=== PATIENT | female | born 2000 | race Caucasian/White ===

== ENCOUNTER 2023-10-14 09:56 | Emergency (ER) | payer OTHER, SELFPAY ==
[2023-10-14 10:12] VITALS: BP 128/83; PULSE 84; RESP 18; TEMP 36.8; O2SAT 97; BMI 43.4
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
--- NOTE | 2023-10-14 13:10 | CT_ITS ---
Final Report Patient: CLEO ESPINOZA Facility:?[facility] Patient ID:?[id number] Site Patient ID:?[id number]. Site :?[id number] Study:?CT Head WO-10/14/2023 1:51:40 PM Ordering Physician:OVI Final Report: INDICATION: Headache and confusion TECHNIQUE: CT head without contrast. COMPARISON: None. FINDINGS: CSF spaces: Within normal limits for age. Brain parenchyma: The gama-white differentiation is normal. No sign of mass, hemorrhage, or midline shift. Skull base and calvarium: The visualized paranasal sinuses and mastoid air cells demonstrate no acute or significant findings. The visualized orbits are grossly unremarkable. No skull fractures. IMPRESSION: Unremarkable noncontrast head CT. Please note that all CT scans at this facility use dose modulation, iterative reconstruction, and/or weight-based dosing when appropriate to reduce radiation dose to as low as reasonably achievable. Dictated by Shade Smith MD @ 10/14/2023 2:07:09 PM (Electronic Signature)
[2023-10-14 13:37] LABS: Hemoglobin* 13.4 gm/dL (12.0-16.0); Lymphocytes Percent Auto 21.2 % (20-44); Mean Corpuscular HGB Conc 33 gm/dL (32-36); Mean Corpuscular Hemoglobin 29 pg (26-34); Mean Corpuscular Volume 88 fL (80-100); Monocytes Percent Auto 4.7 % (0.0-11.0); Neutrophils Percent Auto 72.4 % (42.0-72.0); Platelet Count* 406 K/uL (140-440); RDW Coefficient of Variation % 12.7 % (11.5-15.5); Red Blood Count 4.67 m/uL (4.00-5.20); White Blood Count* 14.17 K/uL (4.50-11.00)
[2023-10-14 13:38] LABS: Basophils Percent Auto 0.2 % (0.0-3.0); Eosinophils Percent Auto 1.4 % (0.0-7.0); Immature Granulocytes Pct Auto 0.1 %
[2023-10-14 13:46] LABS: Slide Review Reflex No
[2023-10-14 14:01] LABS: HCG Qualitative Serum* Negative (Negative)
[2023-10-14 14:02] LABS: Chloride* 109 mmol/L (96-114); Potassium* 4.1 mmol/L (3.6-5.1); Sodium* 141 mmol/L (135-149)
[2023-10-14 14:04] LABS: Creatinine* 0.6 mg/dL (0.5-1.5); Estimated Glomerular Filt Rate 128 ml/min
[2023-10-14 14:05] LABS: Anion Gap 10 mEq/L (7-15); Blood Urea Nitrogen* 12 mg/dL (5-24); Calcium* 9.6 mg/dL (8.4-10.6); Carbon Dioxide* 22 mmol/L (20-32); Glucose* 103 mg/dL (60-115)
[2023-10-14 14:16] LABS: Troponin I* < 0.01 ng/mL (0.01-0.04)
== END 2023-10-14 15:20 | disposition home or self-care (01) ==
PROVIDERS: Emergency Provider Emergency Medicine
DX: G47.00 Insomnia, unspecified (principal); D72.829 Elevated white blood cell count, unspecified; R41.82 Altered mental status, unspecified
CPT/HCPCS: 36415; 70450; 80048; 84443; 84484; 84703; 85025; 99284

== ENCOUNTER 2023-10-18 10:14 | Emergency (ER) | payer OTHER, SELFPAY ==
[2023-10-18 10:27] VITALS: BP 133/82; PULSE 80; RESP 20; TEMP 36.9; O2SAT 100; BMI 48.8
--- NOTE | 2023-10-18 11:17 | ED_ITS ---
HPI - General Adult General Chief complaint: Chest Pain Stated complaint: unable to sleep, chest pain Time Seen by Provider: 10/18/23 11:15 History of Present Illness HPI narrative: Seen in Er on Saturday with multiple symptoms. Symptoms have not gotten better. Has sleeped for about 8 hours this week. Chest pain is worse, more SOB , discomfort while walking. Has a head cold . Coughing from postnasal drip. Wonders if she has the flu. Waves of nausea. Vomited x1 this week. 23-year-old woman presenting to the emergency depart with concern of midsternal chest pain that seems to be little worse with ambulation or lying down. She is not frankly short of breath. Has been coughing having developed a head cold since last ER visit here 4 days ago. Did have lab workup at that time which showed leukocytosis which she said is relatively chronic. She does have a history of pilonidal cysts and says that that or ingrown toenails are often the cause of though neither seem to be flaring at this time. Does have some healing pits in her armpits. Not inflamed. Not complaining of pain. She has only managed about 8 hours of sleep this week. Discussion had been to have an EKG at last visit and she has gotten to think about that maybe she should have this done. She does not though thinking rationally, that she has been having heart attack. Does think that there had been some mild flare of bipolar 2 disorder with some go go go recently. She has been having trouble with sleep as noted and thinks that this may be contributing to her pains. Does not have follow-up psychiatric visit yet but anticipates having this when healthcare kicks in and about a month. Is not noting confusion here today. Related Data Home Medications Medication Instructions Recorded Confirmed Magnessium 10/14/23 melatonin 5 mg capsule 5 mg PO HS PRN 10/14/23 10/14/23 Previous Rx's Medication Instructions Recorded olanzapine 5 mg tablet 5 - 10 mg (1 - 2 x 5 mg) PO QHS 10/18/23 PRN #5 tabs Allergies Allergy/AdvReac Type Severity Reaction Status Date / Time No Known Drug Allergies Allergy Verified 10/14/23 10:29 Review of Systems Status of ROS: Reports: 6 or more systems reviewed and unremarkable except as noted in History and below [facility] Medical History PCOS (polycystic ovarian syndrome) ?E28.2 - Polycystic ovarian syndrome (ICD-10) Spina bifida ?Q05.9 - Spina bifida, unspecified (ICD-10) Anxiety ?F41.9 - Anxiety disorder, unspecified (ICD-10) Depression ?F32.A - Depression, unspecified (ICD-10) Social History Smoking Status: Never smoker Do you use any of these nicotine containing products: None Second hand tobacco smoke exposure: No How often do you have a drink containing alcohol: 2-3 times a week How often do you have six or more drinks on one occasion: Weekly AUDIT-C Alcohol total score: 6 Non-prescribed substance use: marijuana (any form) Exam Narrative: Exam Narrative: Pleasant. NAD. Calm and careful in her conversation. Has magenta dyed hair like her partner who is supportive accompanies her here today. Lungs are clear. Heart in regular rate and rhythm without murmur rub or gallop. She does have pain to palpation about the rhomboid musculature/medial periscapular borders bilaterally. Well-perfused. Moving all extremities without difficulty. She does have numerous line tattoos over her forearms. No indication self-harm behavior. Is congested in the nasopharynx frequently sniffing. There has been some question of sleep apnea but partner does not describe major episodes of apnea. She does snore heavily. Sometimes briefly stops breathing. Does take melatonin 5 mg and he other day tried 10 mg. Is wanting to try [id number] sleep meds if that is what it comes down to but would like to have a backup. She does offer that the constellation of symptoms that she has been having is probably psychosomatic. Const: Vital Signs, click to edit/add: Vital Signs - 24 hr 10/18/23 10:27 Temperature 98.5 F Pulse Rate [Pulse Oximeter] 80 Respiratory Rate 20 Blood Pressure [Ri ght Upper Arm] 133/82 Pulse Oximetry 100 Documenting provider has reviewed patient's vital signs: yes Course Vital Signs Vital signs: Initial Vital Signs Temperature 98.5 F 10/18/23 10:27 Temperature Source Temporal Artery Scan 10/18/23 10:27 Pulse Rate 80 10/18/23 10:27 Pulse Rhythm Regular 10/18/23 10:27 Respiratory Rate 20 10/18/23 10:27 Blood Pressure 133/82 10/18/23 10:27 Blood Pressure Mean 99 10/18/23 10:27 Blood Pressure Position Sitting 10/18/23 10:27 Pulse Oximetry 100 10/18/23 10:27 Vital Signs Temperature 98.5 F 10/18/23 10:27 Pulse Rate 80 10/18/23 10:27 Respiratory Rate 20 10/18/23 10:27 Blood Pressure 133/82 10/18/23 10:27 Pulse Oximetry 100 10/18/23 10:27 Temperature 98.5 F 10/18/23 10:27 Pulse Rate 80 10/18/23 10:27 Respiratory Rate 20 10/18/23 10:27 Blood Pressure 133/82 10/18/23 10:27 Pulse Oximetry 100 10/18/23 10:27 Medical Decision Making MDM Narrative Medical decision making narrative: In spite of low pretest probability offered chest x-ray and screening for pulmonary embolus; both of which I think were reasonably declined by [facility]. Spent some time in conversation reviewing all concerns. Decided to test for COVID influenza Some of this chest discomfort could be anxiety or also related to the discomfort/tension in the upper back I think with some good sleep might be even further improved. Considering mental health concerns combined with sleep concerns Zyprexa might be a good, albeit temporary option here. See patient discharge plan for further discussion Medical Records Medical records reviewed: Yes I reviewed the patient's medical records Lab Data Lab results reviewed: Yes I reviewed the patient's lab results Labs: Lab Results 10/18/23 Range/Units 10:45 SARS-CoV-2 (PCR) Negative SARS-CoV-2 (Negative) Influenza Type A (PCR) Negative PCR FLU A (Negative) Influenza Type B (PCR) Negative PCR FLU B (Negative) Discharge Plan Discharge Clinical Impression: Insomnia, Atypical chest pain, Upper back pain, Head cold Patient Disposition: Home, Self-Care Condition: Stable Additional Instructions: Do consider that handout on upper back pain. Consider doing those stretches a couple of times daily going forward. For sleep: Can take up to 50 mg of diphenhydramine or doxylamine per dose. These can also be combined with your melatonin. To practice good sleep hygiene; preparing for bed possibly with a shower and not looking at screens for at least an hour before. If other medication isn't working or your efforts at achieving sleep are not being successful, there is a prescription of Zyprexa available for you at the pharmacy. This isn't a medication that one would take long-term in this case but I would expect it to help you get a couple of nights of sleep if necessary. I would take 1 tablet and if not asleep in an hour take another tablet. Activity Level: No Restrictions Discharge Diet: Regular Prescriptions: New olanzapine 5 mg tablet 5 - 10 mg PO QHS PRNQty: 5 0RF No Action melatonin 5 mg capsule 5 mg PO HS PRN Patient Comments: if not smoking Magnessium Follow Up/Referrals: Provider,Not a Local [Primary Care Provider] - Stand Alone Forms: [employer] Info Instructions
[2023-10-18 11:44] LABS: PCR FLU A Negative PCR FLU A (Negative); PCR FLU B Negative PCR FLU B (Negative); SARS PCR* Negative SARS-CoV-2 (Negative)
== END 2023-10-18 13:13 | disposition home or self-care (01) ==
PROVIDERS: Emergency Provider Family Medicine
DX: R07.9 Chest pain, unspecified (principal); M54.9 Dorsalgia, unspecified; G47.00 Insomnia, unspecified
CPT/HCPCS: 87631; 93005; 99284

== ENCOUNTER 2025-03-01 09:33 | Emergency (ER) | payer OTHER, SELFPAY ==
--- OUTSIDE RECORDS SUMMARY | 2025-03-01 09:37 | XMS_ITS | Clinical Summary ---
Author Organization [employer] [facility] Address [address] [place] [address] Care Team Providers Care College Recruiter Name Role Phone Pcp, No Primary Care Provider Unavailabl e Allergies Active Allergy Reactions Criticality Noted Date Comments Mold Anaphylaxis High 09/03/2024 Medications * This document contains information received from the source organization and may not represent a complete record from that organization. Cetirizine 10 mg cap Take by mouth. Active albuterol HFA (PRO-AIR; VENTOLIN; PROVENTIL) 90 mcg/actuation inhalerIndications :Bacterial lower respiratory infection,Acute bronchitis due to COVID-19 virus Inhale 2 Puffs by mouth every 4 hours if needed for Shortness Of Breath or Wheezing. 8 g 3 5 Active fluticasone propionate (FLOVENT) 110 mcg/Actuation inhalerIndications :Mild intermittent asthma without complication (HC) Inhale 1 Puff by mouth two times daily. 12 g 5 Active SUMAtriptan (IMITREX) 50 mg tabletIndications: Chronic migraine with aura without status migrainosus, not intractable Take 1 Tablet (50 mg) by mouth every 2 hours if needed for Migraine. Give at minimum 2hrs apart. Max Dose: 200mg per 24hrs. 10 Tablet 3 5 Active amitriptyline 10 mg tabletIndications: Chronic migraine with aura without status migrainosus, not intractable Take 1 Tablet (10 mg) by mouth at bedtime. 90 Tablet 3 5 08/29/19 26 Active rosuvastatin 5 mg tabletIndications: Hyperlipidemia, unspecified hyperlipidemia type Take 1 Tablet (5 mg) by mouth at bedtime. 90 Tablet 3 5 Active Active Problems Problem Noted Date Diagnosed Date Emotional disturbance of childhood 10/17/2020 Overview (10/17/2020): will refer to psych now for cont evaluation and care. ? anxiety vs personality disorder that is coming through. Overweight 10/17/2020 Overview (10/17/2020): MOP counselled for about 15 minutes about calories/exercise/life style changes. We also discussed the mood/anxiety issues and I agree with her going to counselling to discuss anger managment vs early OCD. will follow and encouraged consistent home discipline to re-enforce the school discipline. Urticaria 10/17/2020 Overview (10/17/2020): pt has not gotten her allergy testing done, they will go to [facility] and find out about the consult. will use benadryl prn and when cough starts again will begin with zyrtec 5mg qd. pt to go to the ER for any SOB/wheezing. PCOS (polycystic ovarian syndrome) 10/17/2020 Chronic bilateral low back pain without sciatica 05/19/2019 Encounters Date Type Department Care Team Description 03/01/2025 Nurse Triage [facility] [address] [place] [address] Pcp, No Chest Pain 02/25/2025 Nurse Triage [facility] [address] [place] [address] Flor Juarez DO Confusion 02/15/2025 Orders Only [facility] [address] [place] [address] Flor Juarez DO Refill Request 02/11/2025 10:17 AM CDT - 02/11/2025 11:59 PM CDT Hospital Encounter [facility] [address] [place] [address] Flor Juarez DO Family history of early CAD; Mixed hyperlipidemia 02/11/2025 Travel 12/10/2024 8:30 AM CDT Office Visit [facility] [address] [place] [address] Flor Juarez, Physical (24 yr/); Medication Management; Headache (have gotten a little better) 12/10/2024 Travel from Last 3 Months Immunizations Immunization Administration Dates Next Due COVID-19 vaccine (Moderna 100mcg/0.5mL) PATRICK GIL 03/03/2021,01/19/2021 Family History Medical History Relation Name Comments Heart attack Father Diabetes type II Mother Polycystic ovary syndrome Sister Relation Name Status Comments Father Mother Sister Social History Tobacco Use Types Packs/Day Years Used Date Smoking Tobacco: Never Smokeless Tobacco: Never Tobacco Cessation:Counseling Given: Yes Alcohol Use Standard Drinks/Week Comments Yes 0 (1 standard drink = 0.6 oz pur e alcohol) couple of time a month PHQ-2 Answer Date Recorded PHQ-2 TOTAL SCORE 1 09/03/2024 Social Connections Answer Date Recorded Do you often feel lonely or isolated from those around you? 0 09/03/2024 Financial Resource Strain Answer Date R ecorded Difficulty of Paying Living Expenses 1 09/03/2024 Difficulty of Paying Living Expenses 2 09/03/2024 Food Insecurity Answer Date Recorded Do you worry your food will run out before you are able to buy more? 1 09/03/2024 Transportation Needs Answer Date Record ed Does lack of transportation keep you from medica l appointments? 1 09/03/2024 Does lack of transportation keep you from work, meetings or getting things that you need? 1 09/03/2024 Housing Stability Answer Date Recorded What is your housing situation today? 1 09/03/2024 Utilities Answer Date Recorded Do you have trouble paying f or utilities (for example, heat, electricity, water, phone)? 1 09/03/2024 Comments No Sex and Gender Information Value Date Recorded Sex Assigned at Not on file Legal Sex Female 2:38 PM CDT Gender Identity Not on file Sexual Orientation Not on file Obstetrics History Para Term AB IAB SAB Ectopic Multiple Livin g Live Births 0 0 0 0 0 0 0 0 0 0 0 Last Filed Vital Signs Vital Sign Reading Time Taken Comments Blood Pressure 128/76 12/10/2024 8:42 AM CDT Pulse 99 12/10/2024 8:42 AM CDT Temperature 37.5 C (99.5 F) 02/04/2022 11:41 AM CDT Respiratory Rate 16 02/04/2022 11:4 1 AM CDT Oxygen Saturation 98% 12/10/2024 8:42 AM CDT Inhaled Oxygen Concentration - - Weight 121.7 kg (268 lb 3.2 oz) 12/10/2024 8:42 AM CDT Height 154.1 cm (5' 0.67) 12/10/2024 8:42 AM CD T Body Mass Index 51.23 12/10/2024 8:42 AM CDT Plan of Treatment Upcoming Encounters Date Type Department Care Team (Late st Contact Info) Description 03/04/2025 8:55 AM CDT Office Visit [facility] [address] [place] [address] Flor Juarez DO [address] [place] [address] Health Maintenance Due Date Last Done Comments Tetanus booster 2010 HIV for age 15-65 2014 HPV series for age 9-26 (1 - 3-dose series) 2014 Hepatitis C screening for age 18-79 2017 Hepatitis B series for 19+ (1 of 3 - 19+ 3-dose series) 2018 Pap test for age 21-65 01/05/2020 COVID-19 vaccine series ( season) 2024 03/03/2021, 01/19/2021 Influenza Vaccine (#1) 2025 Depression screening for age 12+ 09/03/2025 09/03/2024, 01/20/2021, 10/17/2020, Additional history exists BMI (ht and wt on same day) for age 18+ 12/10/2025 12/10/2024, 10/17/2020, 09/16/2019, Additional history exists Pneumococcal series for age 6-49 Aged Out No longer eligible based on patient's age to complete this topic Procedures Procedure Name Priority Date/Time Associated Diagnosis Comments CT CARDIAC CALCIUM SCORE ONLY WO SINGLE READ Routine 02/11/2025 10:38 AM CDT Family history of early CAD Mixed hyperlipidemia HEMOGLOBIN A1C MONITORING (POCT) Routine 12/10/2024 10:25 AM CDT Diabetes mellitus screening from Last 3 Months Results * CT CARDIAC CALCIUM SCORE ONLY WO SINGLE READ (02/11/2025 10:38 AM CDT) Anatomical Region Laterality Modality Computed Tomogra phy Impressions 02/15/2025 6:22 AM CDT The coronary artery calcium score of 0.7 is consistent with minimal identifiable calcification. Please note that all CT scans at this facility use dose modulation, iterative reconstruction and/or weight-based dosing when appropriate to reduce radiation dose to as low as reasonably achievable. ALYSSA CRONIN M.D. [employer] [email or web address] Narrative 02/15/2025 6:22 AM CDT Table formatting from the original result was not included. For Patients: As a result of the Century Cures Act, medical imaging exams and procedure reports are released immediately into your electronic medical record. You may view this report before your referring provider. If you have questions, please contact your health care provider. CT CARDIAC CALCIUM SCORING, 02/11/2025 PATIENT HISTORY: Coronary artery disease risk. REPORT: High-resolution, ECG-synchronized computed tomography of the heart with attention to the coronary arteries was performed using Siemens HeartView CT. Coronary calcification analyzed using Siemens calcium scoring software. These are the results of the evaluation: Artery Number of Lesions Volume Equiv. Mass Calcium Score LM 1 1.1 0.12 0.4 LAD 0 0.0 0.00 0.0 CX 1 0.2 0.12 0.4 RCA 0 0.0 0.00 0.0 TOTAL 2 1.3 0.24 0.7 Threshold: 130 HU (102.7 mg/cm3 CaHA) *) Calibration factor: 0.790 mg/(HUcm3) CaHA The Computed Tomography of the coronary arteries detected coronary calcifications. According to the current state of knowledge (O'Rosa, Circulation 2000; 102:126), coronary calcifications are a marker for coronary atherosclerosis. The more calcium is detected, the higher is the likelihood for an obstructive coronary disease. However, there is no unique relationship between the amount of detected calcium and the extent or localization of this disease. The amount of calcium is closely correlated with the extent of coronary atherosclerosis, although the true plaque burden is underestimated. With a high amount of coronary calcium, a moderate to high risk of a cardiovascular event within the next 2 to 5 years can be assumed. No Identifiable Calcification Minimal Identifiable Calcification Mild Calcification Moderate Calcification Significant Calcification 0 1-10 11-100 101-400 401 and above (Following Dan Clin Proc. 1999;74(3):243-252) FINDINGS: Heart size normal. Limited visualization of the lung villanueva are clear. Liani Epifanioq DO CT Final Result * POCT Hemoglobin A1C Monitoring (12/10/2024 10:25 AM CDT) POC HEMOGLOBIN A1C 5.5 <6.0 % OF TOTAL HGB [facility] Comment: Any point of care results exhibiting inconsistency with the patient's clinical status should be repeated using a different testing method. Blood BLOOD SPECIMEN / Unknown 12/10/2024 10:25 AM CDT 12/10/2024 10:26 AM CDT Adesonido Cempraqra DO CHEMISTRY Final Result [facility] [address] [place] [address], [facility] [address] [place] [address] from Last 3 Months [address] [place] [address] [address] [place] [address] [place] [address] [address] [place] [address] [address] [place] [id number] Care Teams College Recruiter Relationship Specialty Start Date End Date Pcp, No . PCP - General 02/09/25
[2025-03-01 09:54] VITALS: BP 108/75; PULSE 82; RESP 24; TEMP 37.3; O2SAT 99; BMI 52.7
--- NOTE | 2025-03-01 10:38 | ED_ITS ---
HPI - General Adult General Chief complaint: Altered Mental Status Stated complaint: Emotional very out it- medication withdrawal Time Seen by Provider: 03/01/25 10:20 Source: patient Mode of arrival: ambulatory Limitations: no limitations History of Present Illness HPI narrative: 25-year-old female presenting today with emotional instability. Patient states that she was on amitriptyline for 6 months for headaches but it was causing brain fog so she abruptly stopped taking it on Saturday since then she feels that she is emotionally unstable. She goes from feeling happy to crying within minutes. She is having a hard time sleeping, no changes in her appetite. She denies any fevers or chills. No headache, vision changes ringing in her ears. She denies word-finding difficulty or neurologic deficits. She states that she continues to have brain fog but it is not as bad as it was when she was on amitriptyline, she is having hard time concentrating and focusing. She denies diarrhea, no nausea or vomiting. No joint aches. No sweating. She does complain of feeling irritable, increased fatigue, restless with mood swings. Denies thoughts of hurting herself or others. Patient states that she has a history of anxiety, is not on any treatment and does not see a therapist. Related Data Home Medications ?Medication ?Instructions ?Recorded ?Confirmed Magnessium DAILY 10/14/23 09/08/24 albuterol sulfate 90 mcg/actuation 2 puff inhalation Q 4H PRN wheezing 09/08/24 03/01/25 aerosol inhaler amitriptyline 10 mg PO HS 09/08/24 5 diphenhydramine HCl PO PRN 09/08/24 09/08/24 amitriptyline 10 mg tablet 10 mg PO QPM 03/01/2503/01 ferrous sulfate 325 mg (65 mg 325 mg PO DAILY 03/01/25 03/01/25 iron) tablet (iron) Previous Rx's ?Medication ?Instructions ?Recorded ondansetron 4 mg disintegrating 4 mg PO Q8H PRN nausea and 09/08/24 tablet vomiting #20 tabs Allergies Allergy/AdvReac Type Severity Reaction Status Date / Time mold Allergy Verified 03/01/25 10:03 Review of Systems Status of ROS: Reports: 10 or more systems reviewed and unremarkable except as noted in History and below [facility] Medical History PCOS (polycystic ovarian syndrome) ?E28.2 - Polycystic ovarian syndrome (ICD-10) Spina bifida ?Q05.9 - Spina bifida, unspecified (ICD-10) Anxiety ?F41.9 - Anxiety disorder, unspecified (ICD-10) Depression ?F32.A - Depression, unspecified (ICD-10) Social History Smoking Status: Never smoker Do you use any of these nicotine containing products: None Second hand tobacco smoke exposure: No How often do you have a drink containing alcohol: 2-3 times a week How often do you have six or more drinks on one occasion: Weekly AUDIT-C Alcohol total score: 6 Non-prescribed substance use: marijuana (any form) Exam Narrative: Exam Narrative: Obese, well-developed patient, tearful. Alert and oriented. Answers questions appropriately. Thoughts are goal oriented and rational. No tangential or magical thinking noted. Patient speaks in full sentences without needing to catch her breath. HEENT: Normocephalic atraumatic. Pupils are equally round reactive to light. Extraocular muscles are intact. Conjunctivae are moist without any icterus noted. Moist mucous membranes. Cardiovascular: Heart is regular rate and rhythm S1 and S2 are present without any murmurs. Lungs: Clear to auscultation bilaterally no wheezes rhonchi or rales are appreciated. Patient takes deep breaths without any discomfort. Extremities: Bilateral lower extremities are without edema. Skin: Well perfused. Const: Vital Signs, click to edit/add: Vital Signs - 24 hr 03/01/25 09:54 Temperature 99.1 F Pulse Rate [Pulse Oximeter] 82 Respiratory Rate 24 Blood Pressure [Ri ght Upper Arm] 108/75 Pulse Oximetry 99 Oxygen Delivery Me thod Room Air Course Vital Signs Vital signs: Initial Vital Signs Temperature 99.1 F 03/01/25 09:54 Temperature Source Temporal Artery Scan 03/01/25 09:54 Pulse Rate 82 03/01/25 09:54 Respiratory Rate 24 03/01/25 09:54 Blood Pressure 108/75 03/01/25 09:54 Blood Pressure Mean 86 03/01/25 09:54 Blood Pressure Position Sitting 03/01/25 09:54 Pulse Oximetry 99 03/01/25 09:54 Oxygen Delivery Method Room Air 03/01/25 09:54 Vital Signs Temperature 99.1 F 03/01/25 09:54 Pulse Rate 82 03/01/25 09:54 Respiratory Rate 24 03/01/25 09:54 Blood Pressure 108/75 03/01/25 09:54 Pulse Oximetry 99 03/01/25 09:54 Oxygen Delivery Method Room Air 03/01/25 09:54 Temperature 99.1 F 03/01/25 09:54 Pulse Rate 82 03/01/25 09:54 Respiratory Rate 24 03/01/25 09:54 Blood Pressure 108/75 03/01/25 09:54 Pulse Oximetry 99 03/01/25 09:54 Oxygen Delivery Method Room Air 03/01/25 09:54 Medical Decision Making MDM Narrative Medical decision making narrative: 25-year-old female with fairly classic symptoms of immature between withdrawal. We discussed that she is likely at her peak of withdrawal symptoms at this time. I do recommend going back to taking amitriptyline 5 mg every other and tapering over the next 1-2 weeks. She does have an appointment this coming with her primary where they can continue the discussion and see how she is doing. Discharge Plan Discharge Clinical Impression: Medication withdrawal Patient Disposition: Home, Self-Care Condition: Stable Additional Instructions: Recommend restarting your amitriptyline at 5 mg every other day. Do this for 1 week, then take every 2 days for 1 week, then stop. Follow-up on as scheduled to see how you are doing. If you feel like you are getting worse, return to the ER. Prescriptions: No Action albuterol sulfate 90 mcg/actuation HFA aerosol inhaler 2 puff inhalation Q4H PRN (Reason: wheezing) amitriptyline 10 mg PO HS diphenhydramine HCl [Benadryl] PO PRN ondansetron 4 mg tablet,disintegrating 4 mg PO Q8H PRN (Reason: nausea and vomiting) Qty: 20 0RF amitriptyline 10 mg tablet 10 mg PO QPM ferrous sulfate [iron] 325 mg (65 mg iron) tablet 325 mg PO DAILY Magnessium DAILY Follow Up/Referrals: Provider,Not a Local [Primary Care Provider, Family Practice] Stand Alone Forms: [employer] Info Instructions
== END 2025-03-01 11:18 | disposition home or self-care (01) ==
LOC: ED 10:52
PROVIDERS: Emergency Provider Family Medicine; PCP Student in an Organized Health Care Education/Training Program
DX: F19.939 Other psychoactive substance use, unspecified with withdrawal, unspecified (principal)
CPT/HCPCS: 99284

== ENCOUNTER 2025-04-26 10:16 | Emergency (ER) | payer OTHER, SELFPAY ==
--- OUTSIDE RECORDS SUMMARY | 2025-04-26 10:20 | XMS_ITS | Clinical Summary ---
Author Organization [employer] [facility] [employer] Address [address] [place] [address] Care Team Providers Care Respiratory Therapy Director Name Role Phone Pcp, No Primary Care [...] Of Breath or Wheezing. 8 g 3 09/03/19 25 Active SUMAtriptan (IMITREX) 50 mg tabletIndications: Chronic migraine with aura without status migrainosus, not intractable Take 1 Tablet (50 mg) by mouth every 2 hours if needed for Migraine. Give at minimum 2hrs apart. Max Dose: 200mg per 24hrs. 10 Tablet 3 09/03/19 25 Active rosuvastatin 5 mg tabletIndications: Hyperlipidemia, unspecified hyperlipidemia type Take 1 Tablet (5 mg) by mouth at bedtime. 90 Tablet 3 02/16/20 25 Active riboflavin (vitamin B2) 400 mg tabIndications:Landen lawrence syndrome Take 1 Tablet by mouth once daily before a meal. 90 Tablet 03/04/20 25 Active budesonide-formote roL (SYMBICORT,BREYNA) 160-4.5 mcg/actuation (160-4.5 mcg each actuation) inhalerIndications :Mild persistent reactive airway disease without complication (HC) Inhale 2 puffs twice daily and 1-2 puffs every 4 hours as needed for asthma exacerbations . Max 12 puffs per day. 1 Each 04/08/20 Active fluticasone propionate (FLOVENT) 110 mcg/Actuation inhalerIndications :Mild intermittent asthma without complication (HC) Inhale 1 Puff by mouth two times daily. 12 g 09/03/19 25 025 Discontin ued(*Airam ent states no longer taking) amitriptyline 10 mg tabletIndications: Chronic migraine with aura without status migrainosus, not intractable Take 1 Tablet (10 mg) by mouth at bedtime. 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 ? anxiety vs personality disorder that is coming through. Emotional disturbance of childhood 10/17/2020 Overview (10/17/2020): [...] allergy testing done, they will go to [facility] and find out about the consult. will use benadryl prn and when cough starts again will begin with zyrtec 5mg qd. pt to go to the ER for any SOB/wheezing. PCOS (polycystic ovarian syndrome) 10/17/2020 Chronic bilateral low back pain without sciatica 05/19/2019 Encounters Date Type Department Care Team Description 04/23/2025 7:30 AM CDT Nurse/Clinic Staff Only [place] [address] [facility] [place] [address] Testing (HST Download.) 04/22/2025 2:15 PM CDT Nurse/Clinic Staff Only [address] [address] Testing (HST Set-up) 04/22/2025 9:45 AM CDT Ancillary Procedure [address] [address] Arrived 04/22/2025 Procedure Only [address] [address] Jabier Mijares MD Results (HST) 04/22/[address] [address] Flor Juarez DO Results 04/22/2025 Travel 04/16/[address] [address] Flor Juarez DO Refill Request (Breyna) 04/08/2025 10:35 AM CDT Office Visit [address] [address] Flor Juarez DO Medication Management; Neck Pain/problem (Went to recently due to some lymph node pain and swelling - EKG and labs are normal ); Breathing Problem (Has been noticing worsening breathing, especially today - feels stabby ) 04/08/2025 Travel 04/06/2025 Nurse Triage [address] [address] Flor Juarez DO Neck Pain/problem; Pelvis Pain/problem 04/06/[address] [address] Flor Juarez DO Error-please disregard 03/04/2025 8:55 AM CDT Office Visit [facility] [address] [facility] [address] Flor Juarez DO Medication Management (Discuss discontinuing Amitriptyline ) 03/04/2025 Travel 03/01/2025 Nurse Triage [facility] [address] [place] [address] Pcp, No Chest Pain 02/25/2025 Nurse Triage [facility] [address] [place] [address] Flor Juarez DO Confusion 02/15/2025 Orders Only [facility] [address] [place] [address] Flor Juarez DO Refill Request 02/11/2025 10:17 AM CDT - 02/11/2025 11:59 PM CDT Hospital Encounter [facility] [address] [place] [address] Flor Juarez DO Family history of early CAD; Mixed hyperlipidemia 02/11/2025 Travel from Last 3 Months Immunizations Immunization [...] Sign Reading Time Taken Comments Blood Pressure 131/85 04/08/2025 10:40 AM CDT Pulse 72 04/08/2025 10:40 AM CDT Temperature 37.5 C (99.5 F) 02/04/2022 11:41 AM CDT Respiratory Rate 16 02/04/2022 11:4 1 AM CDT Oxygen Saturation 98% 04/08/2025 10: 40 AM CDT Inhaled Oxygen Concentration - - Weight 123.5 kg (272 lb 3.2 oz) 025 10:40 AM CDT Height 154.1 cm (5' 0.67) 12/10/2024 8:42 AM CD T Body Mass Index 51.99 12/10/2024 8:42 AM CDT Plan of Treatment Upcoming Encounters Date Type Department Care Team (Late st Contact Info) Description 04/29/2025 12:50 PM CDT Office Visit [facility] [address] [place] [address] Flor Juarez DO [address] [place] [address] Health Maintenance Due Date Last Done Comments Tetanus booster 2010 HIV for age 15-65 2014 HPV series for age 9-45 (1 - 3-dose series) 2014 Hepatitis C screening for age 18-79 2017 Hepatitis B series for 19+ (1 of 3 - 19+ 3-dose series) 2018 Pap test for age 21-65 01/05/2020 COVID-19 vaccine series (3 - 2024- season) 2025 03/03/2021, 01/19/2021 Influenza Vaccine (#1) 2025 Depression screening for age 12+ 09/03/2025 09/03/2024, 01/20/2021, 10/17/2020, Additional history exists BMI (ht and wt on same day) for age 18+ 12/10/2025 12/10/2024, 10/17/2020, 09/16/2019, Additional history exists RSV vaccine for adults or (1 - 1-dose 75+ series) 2074 Pneumococcal series for age 6-49 Aged Out No longer eligible based on patient's age to complete this topic Procedures Procedure Name Priority Date/Time Associated Diagnosis Comments HOME SLEEP TEST TYPE 3 PORTABLE Routine 04/22/2025 2:08 PM CDT Suspected sleep apnea US NECK OR HEAD SOFT TISSUE HELADIO 04/22/2025 10:21 AM CDT Lymphadenopathy COVID-19 MOLECULAR Routine 04/08/2025 11 :15 AM CDT Lymphadenopathy STREP A PCR Routine 04/08/2025 11:15 AM CDT Lymphadenopathy THROAT RAPID STREP ONLY CLINIC Routine 04/08/2025 11:[address] CARDIAC CALCIUM SCORE ONLY WO SINGLE READ Routine 02/11/2025 10:38 AM CDT Family history of early CAD Mixed hyperlipidemia from Last 3 Months Results * US NECK OR HEAD SOFT TISSUE (04/22/2025 10:21 AM CDT) Anatomical Region Laterality Modality NECK Ultrasound 04/22/2025 10:2 7 AM CDT Narrative 04/22/2025 10:27 AM CDT For Patients: As a result of the Cures Act, medical imaging exams and procedure reports are released immediately into your electronic medical record. You may view this report before your referring provider. If you have questions, please contact your health care provider. Indication: Lymphadenopathy Technique: Grayscale and color Doppler ultrasound of the left mid neck soft tissues performed. Comparison: None Findings: Normal left cervical lymph node is present which measures 2.1 x 0.6 x 0.6 cm. Normal internal vascularity and normal central fatty hilum. Impression: Normal left cervical lymph node. No suspicious findings. Dictated by Yash Gao MD @ 04/22/2025 10:27:16 AM (Electronically Signed) Procedure Note Yash Gao MD - 04/22/2025 For Patients: As a result of the Cures Act, medical imagingexams and procedure reports are released immediately into your electronicmedical record. You may view this report before your referring provider.If you have questions, please contact your health care provider. Indication: Lymphadenopathy Technique: Grayscale and color Doppler ultrasound of the left mid neck soft tissuesperformed. Comparison: None Findings: Normal left cervical lymph node is present which measures 2.1 x 0.6 x 0.6cm. Normal internal vascularity and normal central fatty hilum. Impression: Normal left cervical lymph node. No suspicious findings. Dictated by Yash Gao MD @ 04/22/2025 10:27:16 AM (Electronically Signed) us Adei Shaqra DO US Final Result * COVID-19 MOLECULAR (04/08/2025 11:15 AM CDT) COVID 19 [facility] MOLECULAR Negative Negative 04/09/2025 4:52 AM CDT [facility]- [facility]AL LABORATORY TESTING LABORATORY [facility] 04/09/2025 4:52 AM CDT [facility] Comment:Specimen submitted t o [facility] for testing. Other SPECIMEN FROM NASAL FOSSAE / Unknown Non-Blood / Unknown 04/08/2025 11:15 AM CDT 04/08/2025 11:28 AM CDT Narrative [facility] - 04/09/2025 4:52 AM CDT All PCR tests are subject to false negative result due to variability in viral load and collection technique. A negative result does not rule out a SARS-CoV-2 infection. Clinical correlation required. Flor Juarez DO MICROBIOLOGY Final Result [facility] [address] [address], [place] * STREP A PCR (04/08/2025 11:15 AM CDT) Pathologist [facility] GROUP A STREP Negative 04/09/2025 1:41 AM CDT [facility] TRAL LABORATORY Throat SPECIMEN FROM THROAT / Unknown Non-Blood / Unknown 04/08/2025 11:15 AM CDT 04/08/2025 11:28 AM CDT Flor Juarez MICROBIOLOGY Final Result Performing Organization Address [facility] Co de Phone Number [facility] [address] [place] [id number], [place] * THROAT RAPID STREP ONLY CLINIC (04/08/2025 11:15 AM CDT) Pathologist [facility] POC, GROUP A STREP NOT DETECTED NOT DETECTED 04/08/2025 11:28 AM CDT [facility] Comment: The [place] [employer] recommends that a throat culture be performed if a rapid group A streptococcus assay yields a negative result. [employer] recommends Streptococcus, Group A culture. Throat SPECIMEN FROM THROAT / Unknown Non-Blood / Unknown 04/08/2025 11:15 AM CDT 04/08/2025 11:22 AM CDT Flor Juarez MICROBIOLOGY Final Result [facility] [address] [place] [address], [place] [phone] [facility] [address] [place] [address], [place] [phone] * CT CARDIAC CALCIUM SCORE ONLY WO [...] low as reasonably achievable. ALYSSA CRONIN M.D. [email or web address] Narrative 02/15/2025 6:22 AM CDT Table formatting from the original result was not included. For Patients: As a result of the Cures Act, medical imaging exams and procedure [...] visualization of the lung villanueva are clear. Flor Juarez DO CT Final Result from Last 3 Months Insurance [id number] [place] [id number] [id number] [place] [address] MEDICAID [place] [employer] [id number] [place] [id number] [id number] [place] [id number] Care Teams Respiratory Therapy Director Relationship Specialty Start Date End Date Pcp, No . PCP - General 02/09/25
[2025-04-26 10:26] VITALS: BP 121/73; PULSE 85; RESP 22; TEMP 36.4; O2SAT 95; BMI 52.7
--- NOTE | 2025-04-26 10:31 | ED_ITS ---
HPI - General Adult General Date Seen: 04/26/25 Chief complaint: Shoulder Injury/Pain Stated complaint: L shoulder pain, mental health issues Time Seen by Provider: 04/26/25 10:31 History of Present Illness HPI narrative: 25-year-old female with history of spina bifida, PCOS, anxiety, depression, headaches (previously on amitriptyline), who presents to the ER today with concerns for left shoulder pain and also mental health crisis. In terms of left shoulder pain it has been bothering her for the past month or perhaps a little bit longer. No specific injury but she thinks it might be related to sleeping funny. She used to sleep exclusively on her stomach with her head turned to the side. Lately she has been trying to sleep on the right side. The pain is mostly on the lateral aspect of her shoulder at the end of the collarbone. It tends to hurt worse from sometimes other. A couple of days ago she was looking at it with her fiance and they noticed that her shoulder seemed to be asymmetric and a little bit swollen on that side. She also felt li ke when she leaned her neck forward that her left shoulder did not for moves far forward as her right shoulder. She is worried it might be out of socket. She is able to move it normally and it is no longer asymmetric. It has not been red. It has not been swollen or bruised. No known injury or fall. She does have some pain in her left trapezius and into the back of her shoulder but no pain radiating down her arm. No numbness or weakness in her hand. 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 Her 2nd concern is that she is having trouble with her mental health. It sounds like she has a history of depression anxiety. She for about the past 5 or 6 months she has been having trouble where she is just feeling disconnected from her body, generally hopeless like she will never understand what is going on and that no one understands her. She has had increasing anxiety and insomnia or 7 trouble sleeping. She also notes that she is chronically tired and fatigued. She says she might sleep on Saturday night and them she goes to bed on Saturday she feels like she just went to sleep 5 minutes despite that she is exhausted. She has also have trouble with focus and concentration and sometimes word-finding difficulties. She has had increasing anxiety leading to insomnia lately. She is very worried that she might , without a specific reason for her to be worried. She does not want to and is not suicidal. She is not having any thoughts of hurting herself. She had seen her PCP through the [facility] and then had been prescribed amitriptyline. They chose this antidepressant because it would help with her depression also potentially help with her chronic headaches. However she was feeling increasingly anxious and worse on the amitriptyline so stopped taking it about 3 weeks ago. Per medical record she was seen here in the ER with symptoms of possible amitriptyline withdrawal. She had been in contact with her PCP, Dr. Higgins, through [facility]. He agreed with her stopping the amitriptyline. At that point she was too afraid to start any new medications they did not prescribe anything new. She does not really have a plan for managing her anxiety or depression. She does not really know what she wants. She does not have a therapist and does not currently have any medical insurance. She forgot to sign up for during open and [place] last fall. Related Data Home Medications ?Medication ?Instructions ?Recorded ?Confirmed Magnessium DAILY 10/14/23 04/11/25 albuterol sulfate 90 mcg/actuation 2 puff inhalation Q 4H PRN wheezing 09/08/24 04/11/25 aerosol inhaler ferrous sulfate 325 mg (65 mg 325 mg PO DAILY 03/01/25 04/26/25 iron) tablet (iron) rosuvastatin 5 mg tablet 5 mg PO DAILY 04/04/2504/26 sumatriptan succinate 50 mg tablet 50 mg PO Q2H PRN mi graine 04/26/25 04/26/25 Previous Rx's ?Medication ?Instructions ?Recorded escitalopram oxalate 10 mg tablet 10 mg PO DAILY #30 t abs 04/26/25 (Lexapro) hydroxyzine HCl 25 mg tablet 25 mg PO TID PRN #10 tabs 04/26/25 Allergies Allergy/AdvReac Type Severity Reaction Status Date / Time cat dander Allergy Verified 04/11/25 10:35 mold Allergy Verified 04/11/25 10:35 pollen extracts Allergy Verified 04/11/25 10:35 PFSH PFSH Medical History PCOS (polycystic ovarian syndrome) ?E28.2 - Polycystic ovarian syndrome (ICD-10) Spina bifida ?Q05.9 - Spina bifida, unspecified (ICD-10) Anxiety ?F41.9 - Anxiety disorder, unspecified (ICD-10) Depression ?F32.A - Depression, unspecified (ICD-10) Social History Smoking Status: Never smoker Do you use any of these nicotine containing products: None Second hand tobacco smoke exposure: No How often do you have a drink containing alcohol: 2-3 times a week How often do you have six or more drinks on one occasion: Weekly AUDIT-C Alcohol total score: 6 Non-prescribed substance use: marijuana (any form) Exam Narrative: Exam Narrative: Constitutional: Appears well-developed and well-nourished. Alert. Tearful and anxious, crying as I enter the room. HENT: Head: Atraumatic. Nose: Nose normal. Mouth/Throat: Oral mucosa is clear and moist. no trismus. Pharynx normal. Tonsils symmetric. No tonsillar enlargement, erythema, or exudate. Eyes: Conjunctivae normal. EOM normal. Pupils equal, round, and reactive to light. No scleral icterus. Neck: Normal range of motion. Neck supple. No tracheal deviation present. Cardiovascular: Normal rate, regular rhythm. No gallop. No friction rub. No murmur heard. Symmetric radial artery pulses Pulmonary/Chest: Effort normal. No stridor. No respiratory distress. No wheezes. No rales. No rhonchi . Musculoskeletal: RUE: Normal range of motion. No tenderness. No deformity LUE: Normal range of motion. No deformity clavicle shaft nontender. Sternoclavicular joint nontender. She is mildly tender over the posterior trapezius muscle and mildly tender over the AC joint but then will see any swelling or deformity there. Shoulder seems symmetric with the non painful right side. She has normal active range of motion in her left shoulder including full abduction, external rotation, internal rotation, flexion. She says it hurts when she moves her shoulder. There is no redness or warmth to suggest a septic arthritis. Humeral shaft, biceps, triceps, elbow, forearm, wrist, hand are nontender. RLE: Normal range of motion. No edema. No tenderness. No deformity LLE: Normal range of motion. No edema. No tenderness. No deformity Lymph: No cervical adenopathy. Neurological: Alert and oriented to person, place, and time. Normal strength. CN II-VII intact. No sensory deficit. GCS eye subscore is 4. GCS verbal subscore is 5. GCS motor subscore is 6. Normal coordination Mental status normal. Attention normal. Alert and oriented x3. GCS 15. Memory normal. Speech fluent. Cognition normal. Cranial Nerves intact II-XII except I did not formally test gag or visual acuity. EOMI. Palate elevates symmetrically and tongue protrudes in the midline. Strength: 5/5 trapezius on the right and left 5/5 deltoid on the right and left 5/5 biceps on the right and left 5/5 triceps on the right and left 5/5 special education teacher on the right and left 5/5 thumb opposition on the right and le ft 5/5 finger abduction on the right and le ft 5/5 bilateral in lower extremities. Sensation intact to light touch in both upper extremities (C4-T1) Sensation intact to light touch in Both lower extremities Skin: Skin is warm and dry. No rash noted. No pallor. Normal capillary refill. Psychiatric: Anxious and tearful. Endorses a for several months of hopelessness, anxiety, low energy, fatigue as well as anxiety and insomnia. She does not know what is wrong. She is very worried that no understands how she is feeling or nose was wrong. She had been on amitriptyline but stopped few weeks ago because she was were concerned she was getting side effects of that medication. Not currently on any anxiety or antidepressant medications. Does not have access to long-term treatment because she does not have insurance. Bhaskar says they plan to open and role for through the [facility] when that open and rolled it begins in June. Const: Vital Signs, click to edit/add: Vital Signs - 24 hr 04/26/25 10:26 Temperature 97.6 F Pulse Rate [Pulse Oximeter] 85 Respiratory Rate 22 Blood Pressure [Ri ght Upper Arm] 121/73 Pulse Oximetry 95 Oxygen Delivery Me thod Room Air Course Course ED Course: Recheck-has completed evaluation by telehealth, [place], nurse. She feels that the patient is very safe to discharge home. No concerns for suicidality. Recheck-has been evaluated by [facility] psychiat[facility]. Dr Marx. She agrees the patient is safe to discharge home and recommends Lexapro 10 mg by mouth daily to start for an antidepressant and medicine help treat her generalized anxiety disorder. As already discussed the risks and benefits of this medication with the patient and the patient agrees to started. Noting the patient has anxiety about medications, psychiatry requests that we give the 1st dose of Lexapro here in the ER. Recheck-patient feeling much better, anxiety much improved after lorazepam. Has agreed to take and has already taken her 1st dose of Lexapro. Feels better. She feels confident about getting home. X-rays of her shoulder are normal. Vital Signs Vital signs: Initial Vital Signs Temperature 97.6 F 04/26/25 10:26 Temperature Source Temporal Artery Scan 04/26/25 10:26 Pulse Rate 85 04/26/25 10:26 Respiratory Rate 22 04/26/25 10:26 Blood Pressure 121/73 04/26/25 10:26 Blood Pressure Mean 89 04/26/25 10:26 Blood Pressure Position Sitting 04/26/25 10:26 Pulse Oximetry 95 04/26/25 10:26 Oxygen Delivery Method Room Air 04/26/25 10:26 Vital Signs Temperature 97.6 F 04/26/25 10:26 Pulse Rate 85 04/26/25 10:26 Respiratory Rate 22 04/26/25 10:26 Blood Pressure 121/73 04/26/25 10:26 Pulse Oximetry 95 04/26/25 10:26 Oxygen Delivery Method Room Air 04/26/25 10:26 Temperature 97.6 F 04/26/25 10:26 Pulse Rate 85 04/26/25 10:26 Respiratory Rate 22 04/26/25 10:26 Blood Pressure 121/73 04/26/25 10:26 Pulse Oximetry 95 04/26/25 10:26 Oxygen Delivery Method Room Air 04/26/25 10:26 Medications Administered Medications: Discontinued Medications Generic Name Dose Route Start Last Admin Trade Name Freq PRN Reason Stop Dose Admin Escitalopram Oxalate 10 mg 04/26/25 13:00 04/26/25 13:05 Escitalopram 10 Mg Tablet PO 04/26/25 13:01 10 mg ONCE ONE Administration Lorazepam 1 mg 04/26/25 11:16 04/26/25 11:38 Lorazepam 1 Mg Tablet PO 04/26/25 11:17 1 mg ONCE ONE Administration Medical Decision Making MDM Narrative Medical decision making narrative: 25-year-old female with a complicated presentation to the ER today. 1. Mental health. She is reporting some complicated mental health symptoms ongoing for the past several months. Overall seems to have some component of depression and also significant anxiety. Based on my assessment on a, as well as that of the mental health professional through [facility], she is not presenting with acute thoughts of self-harm, suicide. Nor she presenting with acute psychosis for agitation. We agree she does not reach criteria for inpatient admission or hold. However it is clear that the patient does have anxiety and mental health problems that are affecting almost every facet of her life at home. She had been started on amitriptyline by her PCP (it sounds like in an effort to treat both anxiety/depression and her chronic headaches), but stop that medication due to side effects. Tele psychiatry recommends that we try the patient on Lexapro. She agrees to try it for a month to 6 weeks. First dose given here in the ER. Prescription for 30 days Lexapro 10 mg daily sent to her pharmacy Patient also feels that she will need a p.r.n. for anxiety and panic attacks. We discussed options. She agrees try prescription for hydroxyzine for panic attacks. Were attempting to avoid benzos to reduce risk for addiction and sedation nonetheless patient and her fiance understand that hydroxyzine can cause dizziness and sedation. She says she will probably only take it at bedtime. Most importantly, patient needs a good plan for outpatient follow-up. She currently does not have access to any outpatient mental health care because she did not have insurance. She has been sporadically seen her PCP. The patient's plan is to follow-up with her PCP initially and then after to gastric concerns established in June she was going to arrange for outpatient therapy and further workup. The patient and fiance are both confident that they can achieve this plan. Bhaskar is supportive thoughtful. 2. She has also been having pain in her left shoulder and trapezius muscle for about the past month. She is concerned that she might be dislocating it while she is sleeping. Clinically she is not dislocated on exam here in the ER. X- rays of the shoulder do not show any evidence for glenohumeral joint dislocation nor did she have any Hill-Sachs or Bankart lesions. She is most tender over the posterior trapezius and AC joint. No evidence for AC joint separation or significant arthritis on her shoulder x-ray. Recommend close outpatient follow- up with either PCP or orthopedics. May need physical therapy or advanced imaging with MRI. Patient is agreeable to this plan, and now that her anxiety is controlled, she is much less worried about her shoulder pain. At this point no evidence for any septic arthritis, shingles affecting her shoulder, dislocation, fracture, AC joint separation. No evidence for DVT in the upper extremity. Cervical radiculopathy is considered to be less likely given the absence of any radicular pain or numbness down her arm Precautions return to the ER reviewed. Imaging Data XR Left shoulder: Attestation: I have reviewed the pertinent imaging results. Radiologist's impression: Findings/Impression: Bones: Alignment is normal. No fractures or bone lesions. Joint spaces: Unremarkable. Soft tissues: Unremarkable. Discharge Plan Discharge Clinical Impression: Anxiety, Acute pain of left shoulder Patient Disposition: Home, Self-Care Condition: Stable Instructions: Anxiety (ED), Shoulder Pain (ED) Additional Instructions: As we discussed, please follow-up with your regular doctor the [facility] soon as you are (ideally within 1-2 weeks). Start on the new medication, Lexapro, for anxiety. Use hydroxyzine if needed for anxiety and panic attacks. Remember you can come back to the ER any time if your if having worsening symptoms especially severe anxiety, thoughts of self-harm, hallucinations, or if you need help. For your left shoulder pain, please monitor. If you have worsening pain, increasing swelling, or new symptoms such as redness or bruising of your shoulder, please come back to the ER right away. Otherwise please recheck with your regular doctor for your shoulder pain. Prescriptions: New escitalopram oxalate [Lexapro] 10 mg tablet 10 mg PO DAILY Qty: 30 2RF hydroxyzine HCl 25 mg tablet 25 mg PO TID PRNQty: 10 0RF No Action albuterol sulfate 90 mcg/actuation HFA aerosol inhaler 2 puff inhalation Q4H PRN (Reason: wheezing) rosuvastatin 5 mg tablet 5 mg PO DAILY ferrous sulfate [iron] 325 mg (65 mg iron) tablet 325 mg PO DAILY Magnessium DAILY sumatriptan succinate 50 mg tablet 50 mg PO Q2H PRN (Reason: migraine) Follow Up/Referrals: MAXIMO WETZEL DO [Primary Care Provider, Family Practice] Stand Alone Forms: Work/School Release, [facility] Info Instructions
--- NOTE | 2025-04-26 11:16 | CRLHL7_ITS ---
For Patients: As a result of the Century Cures Act, medical imaging exams and procedure reports are released immediately into your electronic medical record. You may view this report before your referring provider. If you have questions, please contact your health care provider. Indication: Shoulder pain Technique: Three views left shoulder Comparison: None Findings/Impression: Bones: Alignment is normal. No fractures or bone lesions. Joint spaces: Unremarkable. Soft tissues: Unremarkable. Dictated by Shade Smith MD @ 04/26/2025 12:00:44 PM (Electronically Signed)
[2025-04-26] MEDS: ESCITALOPRAM 10 MG TABLET PO (13:05)
== END 2025-04-26 13:50 | disposition home or self-care (01) ==
PROVIDERS: Emergency Provider Emergency Medicine; PCP Student in an Organized Health Care Education/Training Program
DX: M25.512 Pain in left shoulder (principal); F41.9 Anxiety disorder, unspecified
CPT/HCPCS: 73030; 99283; 99284; Q3014; A9270